=== PATIENT | male | born 1960 | race Caucasian/White ===

== ENCOUNTER 2023-12-19 18:38 | Emergency (ER) | payer SELFPAY ==
[2023-12-19] MEDS ORDERED: Furosemide 40 MG (4 mL) VIAL ONE (19:14)
[2023-12-19 19:28] LABS: #Basophils 0.1 thou/uL (0.0-0.2); #Eosinphils 0.4 thou/uL (0.0-0.7); #Lymphocytes 2.7 thou/uL (1.20-3.40); #Monocytes 0.5 thou/uL (0.11-0.59); #Neutrophils 2.8 thou/uL (1.40-6.50); %Eosinophils 6.4 % (0.0-10.0); %Neutrophils 42.7 % (42.0-75.0); Hematocrit 44.1 % (42.0-52.0); Hemoglobin 14.6 g/dL (14.0-18.0); Mean Corpuscular HGB CONC 33.1 g/dL (32.0-36.0); Mean Corpuscular Hemoglobin 30.4 pg (27.0-31.0); Mean Corpuscular Volume 91.9 fl (78.0-98.0); Mean Platelet Volume 8.3 fL (7.4-10.4); Platelet Count 162 10x3/uL (130-400); RBC Distribution Width 11.8 % (11.5-14.5); Red Blood Cell (RBC) Count 4.79 mill/uL (4.70-6.10); White Blood Cell (WBC) Count 6.5 10x3/uL (4.8-10.8)
[2023-12-19 19:48] LABS: Troponin I Less than 0.010 ng/mL (< 0.028)
[2023-12-19 19:49] LABS: ALT (SGPT) 95 U/L (8-55); AST (SGOT) 85 U/L (5-34); Albumin 4.1 g/dL (3.4-4.8); Alkaline Phosphatase 117 U/L (40-110); Anion Gap 19 mmol/L (10-20); BUN (Urea Nitrogen) 7 mg/dL (8.4-25.7); Bilirubin, Total 0.7 mg/dL (0.2-1.2); Calc. Creatinine Clearance 0 mL/min (70-130); Calcium 9.3 mg/dL (7.8-10.44); Carbon Dioxide 23 mmol/L (23-31); Chloride 95 mmol/L (98-107); Estimated GFR 77; Globulin 3.3 g/dL (2.4-3.5); Glucose 106 mg/dL (80-115); Lipase 77 U/L (8-78); Potassium 3.8 mmol/L (3.5-5.1); Protein, Total 7.4 g/dL (5.8-8.1); Sodium 133 mmol/L (136-145)
== END 2023-12-19 20:40 | disposition home or self-care (01) ==
LOC: NAV ERS 18:38
DX: R60.0 Localized edema (principal); K21.00 Gastro-esophageal reflux disease with esophagitis, without bleeding; R74.01 Elevation of levels of liver transaminase levels
CPT/HCPCS: 71045; 80053; 83690; 83880; 84484; 85025; 93005; 96374; J1940

== ENCOUNTER 2025-02-15 09:55 | Emergency (ER) | payer SELFPAY ==
[2025-02-15 10:36] LABS: %Lymphocytes 5.1 % (21.0-51.0); %Neutrophils 87.7 % (42.0-75.0); Hematocrit 36.8 % (42.0-52.0); Hemoglobin 13.7 g/dL (14.0-18.0); Manual Diff?? NO; Mean Corpuscular Hemoglobin 31.9 pg (27.0-31.0); Mean Corpuscular Volume 85.5 fl (78.0-98.0); Platelet Count 187 10x3/uL (130-400); Red Blood Cell (RBC) Count 4.30 mill/uL (4.70-6.10); White Blood Cell (WBC) Count 10.1 10x3/uL (4.8-10.8)
[2025-02-15 10:37] LABS: #Basophils 0.1 thou/uL (0.0-0.2); #Eosinophils 0.0 thou/uL (0.0-0.7); #Lymphocytes 0.5 thou/uL (1.20-3.40); #Monocytes 0.6 thou/uL (0.11-0.59); #Neutrophils 8.9 thou/uL (1.40-6.50); %Basophils 1.4 % (0.0-1.0); %Eosinophils 0.0 % (0.0-10.0); %Monocytes 5.8 % (0.0-10.0)
[2025-02-15 10:51] LABS: ALT (SGPT) 87 U/L (Less than 45); AST (SGOT) 133 U/L (11-34); Albumin 4.1 g/dL (3.1-4.5); Alkaline Phosphatase 106 U/L (40-110); Anion Gap 23 mmol/L (10-20); BUN (Urea Nitrogen) 6 mg/dL (8.4-25.7); Bilirubin, Total 1.7 mg/dL (0.3-1.2); Calc. Creatinine Clearance 0 mL/min (70-130); Calcium 8.5 mg/dL (7.8-10.44); Carbon Dioxide 17 mmol/L (23-31); Chloride 68 mmol/L (98-107); Globulin 3.4 g/dL (2.4-3.5); Glucose 144 mg/dL (80-115); Lipase 139 U/L (8-78); Potassium 3.9 mmol/L (3.5-5.1)
[2025-02-15 11:03] LABS: Troponin I 0.226 ng/mL (< 0.028)
[2025-02-15] MEDS ORDERED: Aspirin 325 MG TAB ONE (11:39)
[2025-02-15 12:15] LABS: INR-International Normal Ratio 1.0; Prothrombin Time 13.0 sec (12.0-14.7)
[2025-02-15 12:16] LABS: PTT 32.2 sec (22.9-36.1)
[2025-02-15 14:17] LABS: Troponin I 0.277 ng/mL (< 0.028)
[2025-02-15] MEDS ORDERED: Azithromycin 500 MG VIAL ONE (14:20)
[2025-02-15 14:24] LABS: Sodium 104 mmol/L (136-145)
[2025-02-15 14:36] LABS: Bicarbonate (HCO3v) 17.7 mmol/L (22.0-28.0); CO2 Tension (PvCO2) 22.5 mmHg (42.0-51.0); Hemoglobin - Calc 14.6 g/dL (14.0-18.0); vO2 Saturation-calc 95.4 % (60.0-85.0)
[2025-02-15 14:37] LABS: Calcium, Ionized 0.90 mmol/L (1.15-1.33); Chloride 69 mmol/L (98-107); Potassium 3.7 mmol/L (3.5-5.1); T. Carbon Dioxide 18.4 mmol/L (22.0-28.0)
[2025-02-15 14:40] LABS: Sodium 102 mmol/L (138-145)
== END 2025-02-15 15:32 | disposition short-term general hospital (02) ==
LOC: NAV ERS 09:55
DX: J44.1 Chronic obstructive pulmonary disease with (acute) exacerbation (principal); M79.89 Other specified soft tissue disorders; R53.1 Weakness; F10.20 Alcohol dependence, uncomplicated; R29.704 NIHSS score 4; I25.2 Old myocardial infarction; I10 Essential (primary) hypertension; F17.210 Nicotine dependence, cigarettes, uncomplicated; Z79.899 Other long term (current) drug therapy
CPT/HCPCS: 36415; 70450; 71045; 71275; 74177; 80053; 80307; 82140; 82330; 82803; 83605; 83690; 83880; 84484; 85025; 85379; 85610; 85730; 93005; 94640; 96365; 96374; J0456; J2919; J7050; J7620